=== PATIENT | female | born 1980 | race American Indian/Alaskan Native ===

== ENCOUNTER 2019-05-29 10:31 | Outpatient (CLI) | payer BC ==
--- NOTE | 2019-05-29 16:37 | Ultrasound Report ---
BILATERAL DIGITAL DIAGNOSTIC MAMMOGRAM WITH CAD RIGHT COMPLETE BREAST ULTRASOUND INDICATION: Follow-up for a nodule identified on a CT Chest done at [facility]. The patient denies feeling a lump. TECHNIQUE: Digital mammographic imaging was performed. This examination was interpreted with the agueda efit of Computer-Aided Detection (CAD) analysis. COMPARISON: 2015 bilateral mammogram done elsewhere. Images are not available for the CT from [facility]. FINDINGS: Breast Density: The breasts are heterogeneously dense, which may obscure small masses. There is no evidence of dominant mass, suspicious calcifications or architectural distortion in eithe r breast. Ultrasound Findings: Complete sonographic evlauation of all 4 quadrants and retroareolar region was p erformed. An irregular solid hypoechoic mass versus irregular cyst at 6:30 o'clock 3 cm from the ni pple measures 1.0 x 0.7 x 0.7 cm. Mild shadowing at the edges but no other shadowing. This finding ma y correlate with a partially circumscribed mammographic asymmetry on the MLO view. An oval circumscri bed solid hypoechoic mass versus cyst with internal echoes at 10:00 4 cm from the nipple measures 4 x 7 x 3 mm. No other significant finding. Ultrasound of the right axilla demonstrated no suspicious ly mph nodes. IMPRESSION: Solid masses versus benign cysts at 6:30 o'clock and 10:00. Recommend ultrasound-guided n eedle aspiration/biopsy at both sites to exclude malignancy. We will also attempt to obtain a CD from [facility] to compare the CT Chest findings with the current mammographic and ultrasound findings. I discussed the findings and the recommendation for ultrasound-guided needle aspiration/biopsy at 2 s ites with the patient at the time of examination. BI-RADS Category 4: Suspicious for Malignancy. A "normal" or negative report should not discourage follow up or biopsy of a clinically significant f inding. A written summary of these findings will be mailed to the patient. The patient will be entered into a mammography reporting system which will generate a reminder letter for the patient's next appointmen t at the appropriate interval. FURTHER INFORMATION: According to the [employer], yearly mammograms are recommend ed starting at age 40 and continuing as long as a woman is in good health. Breast MRI is recommended for women with an approximately 20-25% or greater lifetime risk of breast cancer, including women wi th a strong family history of breast or ovarian cancer and women who have been treated for Hodgkin's disease. Signer Name: Avel Lindsay MD Signed: 05/29/2019 4:32 PM Workstation Name: [id number]
== END 2019-05-29 10:32 | disposition home or self-care (01) ==
LOC: SPVWC 10:31
PROVIDERS: ATTEND Family Medicine
DX: N63.13 Unspecified lump in the right breast, lower outer quadrant (principal)
CPT/HCPCS: 77066